=== PATIENT | male | born 1970 | race Hispanic/Latino ===

== ENCOUNTER 2024-09-13 14:37 | Emergency (ER) | payer BC ==
[~2024-09-13] VITALS: Ht 175.3 cm; Wt 89.8 kg
--- NOTE | 2024-09-13 15:30 | ERN ---
General Chief Complaint: Back Pain or Injury Stated Complaint: BACK PAIN, FELL OFF LADDER Time Seen by MD: 15:05 History of Present Illness Initial Comments Mr. Carlisle is a 54-year-old male who presented to the ED via EMS after recently sustained fall. Patient states that he fell down from a height of 6 ft on his back. In the ED he complaints of neck pain and bilateral shoulder pain he states that he briefly lost consciousness after the fall. He has a past medical history of diabetes mellitus for which he is on insulin. In the ED his vitals are stable except for his blood pressure which was at 146/92. Allergies: Coded Allergies: No Known Allergies (Unverified Allergy, Unknown, 09/13/24) Home Meds Active Scripts Methocarbamol (Robaxin) 750 Mg Tab, 1 TAB PO BID for 15 Days, #60 TAB 0 Refills Prov:JOSEMANUEL FLORENTINO MD 09/13/24 Naproxen (Naproxen) 250 Mg Tablet, 1 TAB PO BID for pain for 15 Days, #30 TAB 0 Refills Prov:JOSEMANUEL FLORENTINO MD 09/13/24 Past Medical History Past Medical History: Diabetes-Type II Past Surgical History: None ROS Dictation ROS Dictation CONSTITUTIONAL: No chills, no fever, no weakness, no diaphoresis, no malaise. HEAD/FACE: No signs of trauma. EENT: No eye pain, no blurred vision, no tearing, no double vision, no ear pain, no ear discharge, no nose pain, no nasal congestion, no throat pain, no throat swelling, no mouth pain. RESPIRATORY: No cough, no orthopnea, no SOB, no stridor, no wheezing. CARDIOVASCULAR: No chest pain, no edema, no palpitations, no syncope. GASTROINTESTINAL/ABDOMINAL: No abdominal pain, no constipation, no diarrhea, no nausea, no vomiting. GENITOURINARY: No abnormal discharge, no dysuria, no frequent urination, no hematuria. No complaints of pain in the genitals. MUSCULOSKELETAL: No back pain, no gout, no joint pain, no joint swelling, b/l shoulder muscle pain and stiffness, neck pain. INTEGUMENTARY: No change in color, no change in hair/nails, no dryness, no lesion, no lumps, no rash. NEUROLOGICAL/PSYCH: No anxiety, not depressed, no emotional problem, no headache, no numbness, no pre-existing deficit, no history of seizures, no tremors, no weakness. HEMATOLOGIC/LYMPHATIC: Not anemic, no history of blood clots, no apparent bleeding, no bruising, glands not swollen. All Systems Negative, Except as Noted. Physical Exam Physical Exam Dictation Physical Exam Dictation VITAL SIGNS: Reviewed. GENERAL APPEARANCE: Alert, oriented x3 HEAD AND FACE: Non-traumatic. EYES: PERRL, pink conjunctivas, eyelid no trauma, anterior chamber clear. EARS: Pinnas intact and no signs of trauma or erythema. Ear canals clear and no discharge. TMs no erythema. NOSE: No discharge, no bleeding. OROPHARYNX: Mouth normal, teeth no caries, tongue pink. Pharynx clear, no er ythema. Tonsils no exudates, no abscesses noted. Mucous membrane moist. NECK: Supple, non-tender, no thyromegaly, no masses, no JVD, no bruits. BREAST: Deferred. CHEST: No tenderness, no crepitus, no paradoxical movement, no retractions. LUNGS: Clear, well-ventilated, symmetric, no rales, no wheezing, no rhonchi, no stridor, good breath sounds bilaterally. HEART: Regular rate, regular rhythm, no murmur, no gallops. VASCULAR: No peripheral edema. ABDOMEN: Soft, positive bowel sounds, nondistended, no guarding, nontender, no rebound, no masses no hepatomegaly, no splenomegaly, no Longo's sign, no hernias. RECTAL: Deferred. GENITAL: Deferred. NEUROLOGICAL: Normal speech, gross motor function intact, gross sensory function intact. MUSCULOSKELETAL: Lateral tenderness on the left side of the neck, full range of motion, back nontender, full range of motion. EXTREMITIES: Nontender, full range of motion. SKIN: Color pink, dry, no turgor, no rash, no lacerations, no abrasions, no contusions. LYMPHATICS: Deferred. Results Laboratory and Microbiology Lab and Micro Result Laboratory Tests Test 09/13/24 15:44 Troponin I High Sensitivity 5 ng/L (4-75) Labs Reviewed?: Yes EKG/XRAY/US/CT/MRI EKG Comment 09/13/2024 time 3:27 p.m. Ventricular rate [address] wave elevation or depression MDM Chief complaint: Patient came to the ED with complaints of neck pain following an accidental fall from a ladder from a height of 6 ft. Patient complained of neck pain and bilateral shoulder pain. Past medical history: Past medical history is unremarkable Vitals: Vitals in the ED were stable except for elevated blood pressure at 146/88 Physical examination: Physical examination revealed tenderness in the neck and shoulder above the scapula. Physical examination otherwise unremarkable Review of systems: Review of systems unremarkable except for pain in the neck region and shoulder region Laboratory results: Laboratory results were unremarkable Imaging results: X-ray of the neck and x-ray of the chest revealed no abnormalities Differential: Neck sprain, muscle spasm, neck fractures. Assessment and plan: We performed a x-ray of the cervical spine to assess for any neck fractures which revealed no abnormalities. Laboratory results were within normal reference range. The findings were discussed with the patient and the decision was made to discharge the patient on pain medication and muscle r elaxants. ED Course Orders Procedure Category Date Status Time Orphenadrine Citrate PHA 09/13/24 Complete (Norflex) 15:30 Acetaminophen 500mg PHA 09/13/24 Complete Tab (Tylenol 500mg T 15:30 Cerv Spine 2-3vws RAD 09/13/24 Taken 15:13 12 Lead Ekg Tracing- EKG 09/13/24 Logged Technical 15:13 Chest 1vw RAD 09/13/24 Taken 15:13 Troponin I High LAB 09/13/24 Complete Sensitivity 15:13 Ketorolac PHA 09/13/24 In Process Tromethamine 30mg/Ml 17:00 Current Medications Medications (Trade) Dose Ordered Sig/Laith Route PRN Reason Start Time Stop Time Status Last Admin Dose Admin Acetaminophen (TYLenol 500MG TAB) 500 mg ONCE ONCE PO 09/13/24 15:30 09/13/24 15:51 DC 09/13/24 15:56 Ketorolac Tromethamine (toRADol) 30 mg ONCE IM 09/13/24 17:00 09/13/24 21:00 09/13/24 17:00 Orphenadrine Citrate (Norflex) 60 mg ONCE ONCE IM 09/13/24 15:30 09/13/24 15:51 DC 09/13/24 15:57 Vital Signs Date Time Temp Pulse Resp B/P (MAP) Pulse Ox O2 Delivery O2 Flow Rate FiO2 09/13/24 16:30 98.2 77 18 135/71 99 Room Air* 0 09/13/24 15:06 77 18 146/92 98 Room Air* 0 09/13/24 14:39 98.2 86 16 154/97 99 Room Air 0 DX & DISP Disposition: Discharge Departure Impression: Primary Impression: Accidental fall from ladder Additional Impression: Neck sprain Condition: Stable Scripts Methocarbamol (Robaxin) 750 Mg Tab 1 TAB PO BID for 15 Days, #60 TAB 0 Refills Prov: JOSEMANUEL FLORENTINO MD 09/13/24 Naproxen (Naproxen) 250 Mg Tablet 1 TAB PO BID for pain for 15 Days, #30 TAB 0 Refills Prov: JOSEMANUEL FLORENTINO MD 09/13/24 Additional Instructions: FOLLOW-UP WITH PRIMARY CARE PROVIDER IN 1 TO 2 DAYS. TAKE MEDICATIONS DIRECTED HERE IN THE EMERGENCY ROOM. OKAY TO CONTINUE HOME MEDICATIONS UNLESS OTHERWISE DISCUSSED DURING YOUR VISIT IN THE EMERGENCY ROOM TODAY. RETURN TO YOUR NEAREST EMERGENCY ROOM IF SYMPTOMS WORSEN OR IF THERE IS NO IMPROVEMENT. CALL 911 IF YOU NEED IMMEDIATE ASSISTANCE. TAKE TYLENOL [id number] NEEDED AND IF NO CONTRAINDICATIONS ARE PRESENT. INCREASE ORAL HYDRATION. IF A WOUND CULTURE OR URINE CULTURE WAS ORDERED HERE IN THE EMERGENCY ROOM DEPARTMENT PLEASE FOLLOW-UP WITH PRIMARY CARE PROVIDER AND ADVISE THEM TO GET REPORTS FROM OUR FACILITY. IF YOU HAD ANY JOSIAH WRAP/SPLINTS THAT WERE APPLIED HERE, PLEASE DO NOT REMOVE THEM UNTIL YOU SEE YOUR PRIMARY CARE OR SPECIALTY. Referrals: SELF,REFERRAL (PCP) LASHAWN BALDWIN MD Time of Disposition: 17:16 JOSEMANUEL FLORENTINO MD Sep 13, 2024 15:30 GILA GALINDO MD Sep 13, 2024 15:57
[2024-09-13] MEDS: ORPHENADRINE 60MG/2ML IM ONE (15:57)
[2024-09-13] MEDS ORDERED: METH-662 PO (17:01)
[2024-09-13] MEDS ORDERED: NAPR-1196 PO (17:01)
[2024-09-13 17:27] VITALS: BP 132/75; PULSE 78; RESP 18; TEMP 98.2; O2SAT 98
--- NOTE | 2024-09-13 17:32 | HMCIMG ---
EXAM: CR Soft Tissue Neck, 5 View. CLINICAL HISTORY: Complains of neck pain, s/p fall COMPARISON: None provided. FINDINGS: SOFT TISSUES: Unremarkable. No retropharyngeal soft tissue swelling or gas. EPIGLOTTIS: No epiglottic thickening. BONES: No acute osseous abnormality. IMPRESSION: No acute pathology evident on soft tissue plain films of the neck. /[place]
--- NOTE | 2024-09-13 17:36 | HMCIMG ---
EXAM: XR Chest, 1 View. CLINICAL HISTORY: 54-year-old male, neck pain. COMPARISON: None provided. FINDINGS: LUNGS: Trace infiltrate in the right middle lobe, question of early pneumonia. PLEURAL SPACES: No pleural effusion or pneumothorax. HEART: The heart size is normal. BONES: No acute osseous abnormality. IMPRESSION: 1. Trace infiltrate in the right middle lobe, possibly representing early pneumonia. /[place]
--- NOTE | 2024-09-14 06:53 | EKG ---
[facility] Test Date: 2024-09-13 Test Time: 15:27:57 Pat Name: CHEPE GUTIÉRREZ Department: ED Room: Gender: M [employer] Maintainer: [id number] : 1970 Requested By: JOSEMANUEL FLORENTINO Order Number: [id number] Reading MD: Amber Griffin Measurements Intervals [place] Rate: 72 P: 36 [place]: 155 QRS: -44 QRSD: 105 T: 19 QT: 400 QTc: 439 Interpretive Statements Sinus rhythm Left anterior fascicular block ST elev, probable normal early repol pattern Compared to ECG 09/16/2014 02:18:35 Left anterior fascicular block now present ST (T wave) deviation now present Electronically Signed On 09-14-2024 12:15:44 CDT by Amber Griffin Please click the below link to view image of tracing.
== END 2024-09-13 17:28 | disposition home or self-care (01) ==
LOC: EDH 14:37
DX: S13.9XXA Sprain of joints and ligaments of unspecified parts of neck, initial encounter (principal); E11.9 Type 2 diabetes mellitus without complications; Z79.4 Long term (current) use of insulin; Z79.899 Other long term (current) drug therapy; W11.XXXA Fall on and from ladder, initial encounter; Y93.89 Activity, other specified; Y92.89 Other specified places as the place of occurrence of the external cause; Y99.8 Other external cause status
CPT/HCPCS: 99284; 71045; 84484; 72040; 96372 ×2; 93005; J1885; J2360